=== PATIENT | female | born 1940 | race Caucasian/White ===

== ENCOUNTER 2019-01-12 09:40 | Emergency (ER) | payer MEDICARE, MEDICAID, SELFPAY ==
[2019-01-12] VITALS (46 sets, daily range): BP systolic 133–196; BP diastolic 59–147; PULSE 67–80; RESP 12–25; TEMP 36.6; O2SAT 98–100
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
--- NOTE | 2019-01-12 10:11 | DI.CT_ITS ---
SYMPTOMS/DIAGNOSIS: TENDER TO PALPATION MIDLINE LUMBAR SPINE CT RECONSTRUCTIONS OF THE THORACIC SPINE: CT reconstructions were performed from the original chest, abdomen and pelvis CT raw data. No thoracic fracture identified. Moderate degenerative change noted. LUMBOSACRAL SPINE CT RECONSTRUCTIONS: CT reconstructions of the lumbar spine were obtained from raw data of the chest, abdomen and pelvis CT. Multilevel degenerative changes noted. Mild anterior superior deformity of L1 vertebral body appears old. No evidence of acute fracture.
[2019-01-12 10:28] LABS: Abs Immature Grans 0.01 k/cumm (0.0-0.09); Absolute Basophil Count 0.02 k/cumm (0.0-0.2); Absolute Eosinophil Count 0.06 k/cumm (0.0-0.7); Absolute Lymphocyte Count 1.12 k/cumm (1.2-3.4); Absolute Monocyte Count 0.89 k/cumm (0.11-0.7); Absolute Neutrophil Count 6.05 k/cumm (1.2-6.7); Basophils % 0.2; Eosinophils % 0.7; HCT 33.8 % (36.0-46.0); HGB 10.5 g/dL (12.0-15.5); Immature Grans % 0.1; Lymphocytes % 13.7; Mean Corp. HGB Concentration 31.1 g/dL (32.0-36.0); Mean Corpuscular Hemoglobin 27.8 pg (27.0-33.0); Mean Corpuscular Volume 89.4 fL (80-95); Mean Platelet Volume 10.1 fL (8.0-11.0); Monocytes % 10.9; Neutrophils % 74.4; Platelet Count 339 x1000/uL (130-400); RBC 3.78 m/cumm (4.00-5.20); RBC Distribution Width 14.7 % (11.7-14.6); White Blood Cell Count 8.15 k/cumm (4.4-10.8)
[2019-01-12 10:44] LABS: ALT 19 U/L (12-78); AST 16 U/L (15-37); Albumin 3.7 g/dL (3.4-5.0); Alkaline Phosphatase 84 U/L (46-116); Anion Gap 8.9 mmol/L (3-11); BUN 35 mg/dL (7-18); Bilirubin, Total 0.4 mg/dL (0.2-1.0); CO2 27.1 mmol/L (21.0-32.0); CREATININE 1.38 mg/dL (0.55-1.02); Calcium 9.4 mg/dL (8.5-10.1); Chloride 104 mmol/L (98-107); Estimated GFR 36.79 (mL/min/1.73m2); Glucose 105 mg/dL (70-100); Lipase 103 U/L (73-393); Magnesium 2.2 mg/dL (1.8-2.4); Potassium 4.2 mmol/L (3.5-5.1); Sodium 140 mmol/L (136-145); Total Protein 8.1 g/dL (6.4-8.2)
[2019-01-12 10:44] LABS: Bilirubin Negative (Negative); Blood Trace-lysed (Negative); Clarity Clear; Glucose Negative (Negative); Ketones Negative (Negative); Leukocyte Esterase Small (Negative); Nitrite Positive (Negative); Urobilinogen 0.2 EU/dL (Up TO 0.2); pH 5.5 (5-8)
[2019-01-12 10:52] LABS: Troponin I < 0.02 ng/mL (0.00-0.06)
[2019-01-12 10:59] LABS: Epithelial Cells Few HPF (Negative); WBC >50 HPF (0-5)
[2019-01-12 11:00] LABS: Bacteria Many HPF (Negative); C & S Indicated? Yes; Casts Negative LPF (Negative); Crystals Negative HPF (Negative); Mucus Negative (Negative)
--- NOTE | 2019-01-12 12:08 | DI.CT_ITS ---
SYMPTOM/DIAGNOSIS: S/P FALL, ? FX, DIFFUSE ABD PAIN CHEST/ABDOMEN AND PELVIS CT: CT examination of the chest, abdomen and pelvis was performed with intravenous infusion of 50 cc's of Omnipaque 350. There is significant motion artifact throughout this examination. No gross fracture identified in the regions surveyed. Lungs are predominantly clear with question of areas of atelectasis in the right lung base, incompletely imaged due to motion. Tracheobronchial tree grossly intact. No pleural effusion or pneumothorax. No gross mediastinal hematoma. Vascular structures poorly opacified. The liver is grossly unremarkable. There is a rim calcified structure projected in the anterior abdomen adjacent to the liver which is indeterminate but likely to reflect a benign process. Spleen contains at least three localized areas of decreased attenuation which are likely to represent cysts. No subcapsular or perisplenic hematoma is seen. Pancreas grossly unremarkable. Adrenals grossly unremarkable. Adrenals grossly unremarkable. Bilateral hydronephrosis versus parapelvic cysts, correlation with CT urogram suggested when clinically appropriate. No significant abdominal wall hernia or hematoma. Abdominal aortic aneurysm noted measuring about 36 by 40 mm. in greatest diameter. Right common iliac artery aneurysm noted with maximal diameter of about 22 mm. No free fluid in the peritoneal cavity. No free air. No evidence of bowel obstruction or bowel injury. Urinary bladder unremarkable. REMOTE ADVISOR structures unremarkable for age. CONCLUSION: No evidence of acute injury. Incidental findings as follows: 1. Indeterminate rim calcified, 2-3 cm. in diameter mass adjacent to liver in anterior abdominal fat. 2. Abdominal aortic aneurysm approximately 4 cm. maximal diameter. 3. Right common iliac artery aneurysm approximately 22 mm. in greatest diameter. 4. Probable splenic cysts. Trauma not absolutely excluded but unlikely. 5. Probable atelectasis right lower lobe. No gross pneumothorax or pulmonary contusion. CERVICAL SPINE CT: CT examination of the cervical spine was performed utilizing multi slice acquisition and multi planar reconstruction. There are severe degenerative changes of the mid cervical spine with multi level disc space loss and prominent hypertrophic spurring of the facets and vertebral endplates. No evidence of acute fracture or dislocation. Unremarkable appearance of the tracheolaryngeal structures. No cervical mass or adenopathy is seen. CONCLUSION: No evidence of acute cervical fracture. NONCONTRAST CRANIAL CT: A noncontrast cranial CT was performed. There is generalized cerebral atrophy. There are patchy areas of decreased attenuation in periventricular white matter bilaterally and there are more focal areas of encephalomalacia involving right temporal lobe and left occipital lobe consistent with old infarcts. No evidence of acute intracranial hemorrhage, mass effect or midline shift. Probable old occipital craniotomies are noted. The visualized paranasal sinuses and mastoid air cells appear clear. Temporal bone structures and orbital structures appear intact. CONCLUSION: No evidence of acute intracranial process.
[2019-01-12] MEDS: cefTRIAXone 1 GM/50 ML BAG IVPB (12:36)
--- NOTE | 2019-01-12 13:58 | PDOC.ERCMPRO ---
Care Management Progress Note 01/12-Radha is an 78 year old female that presents to the emergency department after falling at home. Radha was found in her room at 0800 by her caregiver, on the floor, bleeding from her head. Unknown time of the fall. Radha has a history of dementia and recurring UTI's. Radha lives with a home care provider, Florecita Graham, and receives 29/03 care. Radha has dementia. She receives her services through [employer] Medicaid DS waiver for intellectual disabilities. Service provider is Mayito Dumont, ext [phone], from [facility]. Currently Radha's primary care provider is Bobby Barrera out of [place]. Process has been started to transfer Radha to [facility]. Radha has a state appointed guardian, Balaji He, . Dr. Castro has spoken with a state guardian as Balaji is unavailable today. Plan is for Radha to be discharged back to the home care provider home. Caregiver Shivani Granda will transport home. Florecita will drop off clothes for Radha to go home. Mayito states he will sign discharge paperwork when Radha is ready for discharge. Dr. Castro aware of the above and in agreement.
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
[2019-01-12] MEDS: Cephalexin 500 MG CAP PO (15:36)
== END 2019-01-12 15:37 | disposition home or self-care (01) ==
PROVIDERS: Emergency Provider Physician Assistant
DX: S01.01XA Laceration without foreign body of scalp, initial encounter (principal); W19.XXXA Unspecified fall, initial encounter; N39.0 Urinary tract infection, site not specified; F03.91 Unspecified dementia, unspecified severity, with behavioral disturbance; I10 Essential (primary) hypertension; I71.4 Abdominal aortic aneurysm, without rupture; Z87.440 Personal history of urinary (tract) infections
CPT/HCPCS: 12002; 36415; 74177; 80053; 83690; 87077; 93005; 96374; 99285; 70450; 71260; 72125; 81003; 81015; 83735; 84484; 85025; 87086; 87186; 93010; J0696